=== PATIENT | female | born 2000 | race Caucasian/White ===

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

== ENCOUNTER 2022-12-24 12:46 | Emergency (ER) | payer OTHER ==
[~2022-12-24] VITALS: Ht 167.6 cm; Wt 93.0 kg
[~2022-12-24 12:46] MED LIST changes: +IBUPROFEN600 MG PO
== END 2022-12-24 14:27 | disposition home or self-care (01) ==
LOC: ED 12:46
DX: R17 Unspecified jaundice (principal); Z91.040 Latex allergy status; Z91.018 Allergy to other foods; J45.909 Unspecified asthma, uncomplicated